=== PATIENT | female | born 1935 | race Caucasian/White ===

== ENCOUNTER 2017-01-11 18:22 | Emergency (ER) | payer OTHER ==
[~2017-01-11] VITALS: Ht 160 cm; Wt 63.8 kg
[~2017-01-11 18:22] MED LIST: CEPH500C3 PO; THYR15 PO; ZIAC106.25 PO
[2017-01-11 18:27] VITALS: BP 188/97; PULSE 77; RESP 16; TEMP 97.8; O2SAT 100
[2017-01-11] MEDS ORDERED: PROM25TA10 PO (18:43)
[2017-01-11] MEDS ORDERED: AMOX250C3 PO (18:43)
[2017-01-11] MEDS ORDERED: LEVO100T5 PO (18:43)
[2017-01-11] MEDS ORDERED: CLON0.1T PO (18:43)
[2017-01-11] MEDS ORDERED: ZIAC106.25 PO (18:43)
--- NOTE | 2017-01-11 18:46 | PD ---
HPI Chief Complaint: Injury Time Seen by Provider: 18:38 Travel History International Travel<30 days: No Contact w/Intl Traveler<30days: No Traveled to known affect area: No History of Present Illness HPI 81-year-old female complains of right wrist pain. Patient tripped and fell this afternoon. Patient denies loss of consciousness. Patient denies any headache or neck pain. Patient denies any chest pain or short of breath. Patient denies abdominal pain. Patient denies any back pain. Patient complained of sharp pain localized to the right wrist. Patient denies any pain radiation. On a scale of 1-10 the pain is an 8. Patient has history hypertension, hypothyroidism, chronic kidney disease. PFSH Past Medical History Diminished Hearing: No Hypertension: Yes Thyroid Disease: Yes Menopausal: Yes Past Surgical History Cholecystectomy: Yes Neurologic Surgery: Yes (BACK) Other Surgery: Yes (SINUS) Social History Alcohol Use: No Tobacco Use: No Substance Use: No Allergies-Medications (Allergen,Severity, Reaction): Coded Allergies: codeine (Unverified Adverse Reaction, Intermediate, ABD PAIN, 01/11/17) Reported Meds & Prescriptions Reported Meds & Active Scripts Active Reported Ziac (Bisoprolol Fumarate/HCTZ) 10-6.25 Mg Tab 1 Tab PO DAILY Amoxicillin 250 Mg Cap 250 Mg PO TID Phenergan (Promethazine HCl) 25 Mg Tablet 25 Mg PO Q6H PRN Clonidine (Clonidine HCl) 0.1 Mg Tab 0.1 Mg PO BID Levothyroxine (Levothyroxine Sodium) 100 Mcg Tab 100 Mcg PO DAILY Review of Systems General / Constitutional: No: Fever Eyes: No: Visual changes HENT: No: Headaches Cardiovascular: No: Chest Pain or Discomfort Respiratory: No: Shortness of Breath Gastrointestinal: No: Abdominal Pain Genitourinary: No: Dysuria Musculoskeletal: Positive: Pain Skin: No Rash Neurologic: No: Weakness Psychiatric: No: Depression Endocrine: No: Polydipsia Hematologic/Lymphatic: No: Easy Bruising Physical Exam Narrative GENERAL: Well-nourished, well-developed patient. SKIN: Focused skin assessment warm/dry. HEAD: Normocephalic. EYES: No scleral icterus. No injection or drainage. NECK: Supple, trachea midline. No JVD or lymphadenopathy. CARDIOVASCULAR: Regular rate and rhythm without murmurs, gallops, or rubs. RESPIRATORY: Breath sounds equal bilaterally. No accessory muscle use. GASTROINTESTINAL: Abdomen soft, non-tender, nondistended. MUSCULOSKELETAL: No cyanosis, or edema. BACK: Nontender without obvious deformity. No CVA tenderness. Patient has obvious deformity distal radius on the right wrist. Moderate tenderness on palpation of the right wrist. Limited range of motion of the fingers distally. Good capillary refill. Sensory function intact. Data Data Last Documented VS Vital Signs Date Time Temp Pulse Resp B/P (MAP) Pulse Ox O2 Delivery O2 Flow Rate FiO2 01/11/17 19:59 71 18 176/90 (118) 100 Room Air 01/11/17 18:27 97.8 Orders Orders Complete Blood Count With Diff (01/11/17 18:43) Basic Metabolic Panel (Bmp) (01/11/17 18:43) Prothrombin Time / Inr (Pt) (01/11/17 18:43) Act Partial Throm Time (Ptt) (01/11/17 18:43) Iv Access Insert/Monitor (01/11/17 18:43) Sodium Chlor 0.9% 1000 Ml Inj (Ns 1000 M (01/11/17 19:00) Morphine Inj (Morphine Inj) (01/11/17 19:00) Ondansetron Inj (Zofran Inj) (01/11/17 19:00) Lidocaine 1% Inj (50 Ml) (Xylocaine 1% I (01/11/17 19:00) Wrist, Limited (Ap&Lat) (01/11/17 18:43) Morphine Inj (Morphine Inj) (01/11/17 19:45) Wrist, Limited (Ap&Lat) (01/11/17 19:37) Splint Or Brace Apply/Monitor (01/11/17 19:46) Labs Laboratory Tests Test 01/11/17 19:10 White Blood Count 6.7 TH/MM3 Red Blood Count 4.01 MIL/MM3 Hemoglobin 11.8 GM/DL Hematocrit 35.9 % Mean Corpuscular Volume 89.5 FL Mean Corpuscular Hemoglobin 29.5 PG Mean Corpuscular Hemoglobin Concent 32.9 % Red Cell Distribution Width 12.7 % Platelet Count 149 TH/MM3 Mean Platelet Volume 11.3 FL Neutrophils (%) (Auto) 57.3 % Lymphocytes (%) (Auto) 28.3 % Monocytes (%) (Auto) 10.0 % Eosinophils (%) (Auto) 3.6 % Basophils (%) (Auto) 0.8 % Neutrophils # (Auto) 3.8 TH/MM3 Lymphocytes # (Auto) 1.9 TH/MM3 Monocytes # (Auto) 0.7 TH/MM3 Eosinophils # (Auto) 0.2 TH/MM3 Basophils # (Auto) 0.1 TH/MM3 CBC Comment DIFF FINAL Differential Comment Prothrombin Time 10.7 SEC Prothromb Time International Ratio 1.0 RATIO Activated Partial Thromboplast Time 26.1 SEC Blood Urea Nitrogen 40 MG/DL Creatinine 2.20 MG/DL Random Glucose 103 MG/DL Calcium Level 9.4 MG/DL Sodium Level 135 MEQ/L Potassium Level 3.6 MEQ/L Chloride Level 98 MEQ/L Carbon Dioxide Level 26.9 MEQ/L Anion Gap 10 MEQ/L Estimat Glomerular Filtration Rate 21 ML/MIN [facility] Medical Decision Making Medical Screen Exam Complete: Yes Emergency Medical Condition: Yes Interpretation(s) Last Impressions Wrist X-Ray 01/11/17 1843 Signed Impressions: Service Date/Time: Wednesday, January 11, 2017 18:59 - CONCLUSION: Comminuted and displaced fracture of the distal right radius. Please see above. Moisés Dennis MD Differential Diagnosis Differential diagnosis including fracture, dislocation. Narrative Course 81-year-old female with right wrist injury. Status post fall. Morphine 2 mg IV given. Zofran 4 mg IV. Repeat morphine 2 mg IV. Sugar tong splint and sling applied. I spoke with Dr. Sniclair's child and youth program assistant. Advised for patient to follow-up with him in the office. Procedures Procedure Narrative IV established. Patient was put on cardiac and pulse oximetry monitor. Morphine 2 mg IV given 2. Zofran 4 mg IV. 10 cc of 1% lidocaine injected to distal right radius pressure to distal radius and flexion of the right wrist applied. Patient was put in a sugar tong splint and sling. Diagnosis Primary Impression: Fracture of right radius and ulna Qualified Codes: S52.91XA - Unspecified fracture of right forearm, initial encounter for closed fracture; S52.201A - Unspecified fracture of shaft of right ulna, initial encounter for closed fracture Patient Instructions: General Instructions Additional Instructions: Take medication as needed for pain. Follow-up with orthopedist, Dr. Sinclair, in the office Med/Other Pt SpecificInfo: Prescription(s) given Scripts Ondansetron Odt (Zofran Odt) 4 Mg Tab 4 MG SL Q6HR Y for Nausea/Vomiting, #12 TAB 0 Refills Prov: Jose Dunlap MD 01/11/17 Hydrocodone-Acetaminophen ([place]) 5-325 mg Tab 1 TAB PO Q6H Y for PAIN, #30 TAB 0 Refills Prov: Jose Dunlap MD 01/11/17 Disposition: 01 DISCHARGE HOME Condition: Stable Jose Dunlap MD Jan 11, 2017 18:46
[2017-01-11] MEDS ORDERED: SODIUM CHLOR 0.9% 1000 ML INJ 1,000 ML IV SCH (19:00)
[2017-01-11] MEDS ORDERED: ONDANSETRON HCL 4 MG/2 ML VIAL IV PUSH ONE (19:00)
[2017-01-11] MEDS ORDERED: MORPHINE SULFATE 4 MG/ML INJ IV PUSH ONE ×2 (19:00→19:45)
[2017-01-11] MEDS ORDERED: LIDOCAINE HCL 1% 50 ML VIAL INFIL ONE (19:00)
[2017-01-11 19:19] LABS: AUTOMATED NEUTROPHIL # 3.8 TH/MM3 (1.8-7.7); BASOPHIL # 0.1 TH/MM3 (0-0.2); BASOPHIL % 0.8 % (0.0-2.0); EOSINOPHIL # 0.2 TH/MM3 (0-0.4); EOSINOPHIL % 3.6 % (0.0-4.0); HEMATOCRIT 35.9 % (35.0-46.0); HEMO FLAGS DIFF FINAL; LYMPH % 28.3 % (9.0-44.0); LYMPHOCYTE # 1.9 TH/MM3 (1.0-4.8); MEAN CELL VOLUME 89.5 FL (80.0-100.0); MEAN CORPUSCULAR HEMOGLOBIN 29.5 PG (27.0-34.0); MEAN CORPUSCULAR HGB CONC 32.9 % (32.0-36.0); NEUT % 57.3 % (16.0-70.0); PLATELET COUNT 149 TH/MM3 (150-450); RED BLOOD COUNT 4.01 MIL/MM3 (4.00-5.30); RED CELL DISTRIBUTION WIDTH 12.7 % (11.6-17.2); WHITE BLOOD COUNT 6.7 TH/MM3 (4.0-11.0)
--- NOTE | 2017-01-11 19:23 | RADRPT ---
EXAM DATE/TIME: 01/11/2017 18:59 [facility] COMPARISON: No previous studies available for comparison. INDICATIONS : Right wrist pain, swelling, and deformity after falling tonight. MEDICAL HISTORY : None. SURGICAL HISTORY : None. ENCOUNTER: Initial ACUITY: 1 day PAIN SCORE: 8/10 LOCATION: Right wrist. FINDINGS: There is a comminuted fracture in the physeal scar region of the distal right radius. There is about one shaft width of dorsal displacement, about 1 cm of impaction/foreshortening and moderate dorsal an gulation deformity. Articular surfaces of the radiocarpal joint appear intact. Carpal bones appear in tact. CONCLUSION: Comminuted and displaced fracture of the distal right radius. Please see above. Moisés Dennis MD on January 11, 2017 at 19:20 Board Certified Radiologist. This report was verified electronically.
[2017-01-11 19:31] LABS: POTASSIUM 3.6 MEQ/L (3.5-5.1)
[2017-01-11 19:34] LABS: BICARBONATE 26.9 MEQ/L (21.0-32.0)
[2017-01-11 19:35] VITALS: BP 173/92; PULSE 70; RESP 18; O2SAT 100
[2017-01-11 19:37] LABS: APTT (PATIENT) 26.1 SEC (24.3-30.1); PROTHROMBIN TIME - PATIENT 10.7 SEC (9.8-11.6)
--- NOTE | 2017-01-11 19:52 | RADRPT ---
EXAM DATE/TIME: 01/11/2017 19:44 [facility] COMPARISON: WRIST RIGHT LIMITED(AP & LAT), January 11, 2017, 18:59. INDICATIONS : Post reduction of the right wrist fracture. MEDICAL HISTORY : None. SURGICAL HISTORY : None. ENCOUNTER: Subsequent ACUITY: 1 day PAIN SCORE: 9/10 LOCATION: Right wrist. FINDINGS: There is improved alignment after closed reduction of the distal right radial fracture. Some malalign ment persists, mostly the impaction/foreshortening of currently approximately 6 mm. There is a mildly displaced ulnar styloid fracture now apparent. CONCLUSION: Improved alignment of the distal radial fracture after closed reduction. Acute ulnar styloid fracture present. Moisés Dennis MD on January 11, 2017 at 19:49 Board Certified Radiologist. This report was verified electronically.
[2017-01-11 19:59] VITALS: BP 176/90; PULSE 71; RESP 18; O2SAT 100
[2017-01-11] MEDS ORDERED: ZOFR4TAB3 SL (20:33)
[2017-01-11] MEDS ORDERED: NORC5TAB PO (20:33)
[2017-01-11 21:03] VITALS: BP 167/92; PULSE 71; RESP 18; O2SAT 100
== END 2017-01-11 21:05 | disposition home or self-care (01) ==
LOC: PHED 18:22
DX: S52.91XA Unspecified fracture of right forearm, initial encounter for closed fracture (principal); S52.201A Unspecified fracture of shaft of right ulna, initial encounter for closed fracture; I12.9 Hypertensive chronic kidney disease with stage 1 through stage 4 chronic kidney disease, or unspecified chronic kidney disease; N18.9 Chronic kidney disease, unspecified; E03.9 Hypothyroidism, unspecified; Z79.899 Other long term (current) drug therapy; W01.0XXA Fall on same level from slipping, tripping and stumbling without subsequent striking against object, initial encounter
CPT/HCPCS: 25605; 73100; 80048; 85025; 85610; 85730; 96361; 96374; 96375; 99284; J2270; J2405; J7030

== ENCOUNTER 2017-01-13 16:32 | Inpatient (IN) | payer OTHER, MEDICARE ==
[~2017-01-13] VITALS: Ht 165.1 cm; Wt 63.5 kg
[~2017-01-13 16:32] MED LIST changes: +AMOX250C3 PO; -CEPH500C3 PO; +CLON0.1T PO; +LEVO100T5 PO; +NORC5TAB PO; +PROM25TA10 PO; -THYR15 PO; +ZOFR4TAB3 SL
[2017-01-13 16:34] VITALS: BP 210/103; PULSE 76; RESP 18; TEMP 99.1; O2SAT 96
--- NOTE | 2017-01-13 19:35 | RADRPT ---
EXAM DATE/TIME: 01/13/2017 19:14 [facility] COMPARISON: WRIST RIGHT LIMITED(AP & LAT), January 11, 2017, 19:44. INDICATIONS : Right distal forearm pain, fell MEDICAL HISTORY : None. SURGICAL HISTORY : None. ENCOUNTER: Sequela ACUITY: 3 days PAIN SCORE: 10/10 LOCATION: Right Forearm FINDINGS: A very comminuted and mildly impacted and dorsally displaced fracture is again seen of the distal rig ht radius. There is also an old or styloid fracture. The remainder of the right radius and ulna are i ntact. CONCLUSION: Comminuted and mildly impacted/dorsally displaced of the distal radius without significant change. Al so a mildly displaced ulnar styloid fracture. The rest of the right radius and ulna are intact. Moisés Dennis MD on January 13, 2017 at 19:32 Board Certified Radiologist. This report was verified electronically.
--- NOTE | 2017-01-13 19:36 | RADRPT ---
EXAM DATE/TIME: 01/13/2017 19:15 [facility] COMPARISON: WRIST RIGHT LIMITED(AP & LAT), January 11, 2017, 19:44. INDICATIONS : Right proximal hand pain, fell MEDICAL HISTORY : None. SURGICAL HISTORY : None. ENCOUNTER: Sequela ACUITY: 3 days PAIN SCORE: 10/10 LOCATION: Right Hand FINDINGS: Three view examination of the right hand demonstrates no soft tissue swelling, dislocation, or fractu re. The carpal bones appear intact. The interphalangeal and metacarpophalangeal joints are intact. Bony mineralization is normal. 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 Moderate joint space narrowing with chronic ap pearing erosions seen of the first metacarpophalangeal joint. CONCLUSION: No fracture or other acute abnormality seen of the right hand. Moisés Dennis MD on January 13, 2017 at 19:34 Board Certified Radiologist. This report was verified electronically.
[2017-01-13 19:46] VITALS: BP 207/93; PULSE 83; RESP 18; O2SAT 98
[2017-01-13] MEDS ORDERED: MORPHINE SULFATE 4 MG/ML INJ IV PUSH ONE (20:00)
[2017-01-13] MEDS ORDERED: ONDANSETRON HCL 4 MG/2 ML VIAL IV PUSH ONE (20:00)
--- NOTE | 2017-01-13 20:04 | PD ---
Physical Exam Date Seen by Provider: Jan 13, 2017 Time Seen by Provider: 19:58 Narrative GENERAL: SKIN: Warm and dry. HEAD: Normocephalic. EYES: No scleral icterus. No injection or drainage. NECK: Supple, trachea midline. No JVD or lymphadenopathy. CARDIOVASCULAR: Regular rate and rhythm without murmurs, gallops, or rubs. RESPIRATORY: Breath sounds equal bilaterally. No accessory muscle use. GASTROINTESTINAL: Abdomen soft, non-tender, nondistended. MUSCULOSKELETAL: No cyanosis, attention right upper extremity with wrist and hand edema post splinting for wrist fracture with hand edema; capillary refill less than 2 seconds, radial pulse 2+ to palpation, decreased thumb apposition secondary to previous hand surgery, patient denies any sensory deficit to light touch sensation. Data Data Last Documented VS Vital Signs Date Time Temp Pulse Resp B/P (MAP) Pulse Ox O2 Delivery O2 Flow Rate FiO2 01/13/17 20:14 67 18 197/89 (125) 99 Room Air 01/13/17 16:34 99.1 Orders Orders Forearm (2vws) (01/13/17 19:03) Ice/Cold Pack (01/13/17 19:03) Hand, Complete ([id number]) (01/13/17 19:03) ^ Saline Lock (01/13/17 19:56) Morphine Inj (Morphine Inj) (01/13/17 20:00) Ondansetron Inj (Zofran Inj) (01/13/17 20:00) MDM Medical Record Reviewed: Yes Supervised Visit with DANIELE: Yes Interpretation(s) Last Impressions Radius/Ulna X-Ray 01/13/171902 Signed Impressions: Service Date/Time: December 19:14 - CONCLUSION: Comminuted and mildly impacted/dorsally displaced of the distal radius without significant change. Also a mildly displaced ulnar styloid fracture. The rest of the right radius and ulna are intact. Moisés Dennis MD Hand X-Ray 01/13/171902 Signed Impressions: Service Date/Time: December 19:15 - CONCLUSION: No fracture or other acute abnormality seen of the right hand. Moisés Dennis MD Differential Diagnosis Comminuted fracture, compartment syndrome, neurovascular tendon injury Narrative Course I, Dr. Trevino, have reviewed the advance practice practitioner's documentation and am in agreement, met with the patient face to face, made the diagnosis, and the medical decision making was done by me. *My assessment and Findings: A 81-year-old female had a non-syncopal trip and fall on Tuesday with a right wrist injury associated with deformity angulation. Patient sustained no other injury at the time. Patient was seen in the emergency department at [facility] where closed reduction was performed a sugar tong splint was applied and patient was referred to Dr. Scales 's office after speaking with parent and his PA for the patient to be seen by the end of this week. According to the patient and her daughter with whom she lives attempt was made to schedule appointment with Dr. Scales's office but was unsuccessful. A family friend is an orthopedist who had an opportunity to review her x-rays and stated that the patient needed to be re-seen in the hospital and needed to have surgical repair of the wrist fracture. Patient returns to the emergency department this time due to increasing and ongoing pain as well as swelling of the hand. Patient also has history of hypertension , hypothyroidism previous cholecystectomy and back surgery; patient sustained no other injury and denies any other areas of pain except for the right wrist and swelling of right hand. Patient's had some mild tingling to the right index finger. Patient has been taking her blood pressure medication and other medications as prescribed, does not take any blood thinning agents. Patient states that because of pain she has had poor appetite. Patient has had no subsequent fall. Saline lock inserted patient administered morphine sulfate 3 mg IV along with Zofran 4 mg IV for complaint of 10 over 10 wrist pain Call placed to process control technician orthopedist, Dr. Castillo Physician Communication Physician Communication call placed to on-call orthopedist Dr Castillo; repeat call; repeat call Zo Trevino MD Jan 13, 2017 20:04
--- NOTE | 2017-01-13 20:04 | PD ---
HPI . Right wrist fracture Chief Complaint: Fall Time Seen by Provider: 19:00 Travel History International Travel<30 days: No Contact w/Intl Traveler<30days: No Traveled to known affect area: No History of Present Illness HPI 81-year-old female patient presents emergency department for evaluation of right wrist fracture. Patient was seen at our facility [place] and the fracture was splinted with a sugar tong splint and patient was referred to follow up with orthopedist outpatient. Patient states she has been unable to get up appointment within an appropriate period of time with the orthopedist. Patient states that her right hand is becoming more painful, swollen and numb everyday. Patient states she is unable to eat or sleep due to the pain. Patient denies any other physiological complaint at this time. Patient denies chest pain, shortness breath or lightheadedness. PFSH Past Medical History Cardiovascular Problems: Yes Diminished Hearing: No Genitourinary: Yes (ESRD stage 4) Hypertension: Yes Thyroid Disease: Yes Tetanus Vaccination: < 5 Years Influenza Vaccination: No Menopausal: Yes Past Surgical History Appendectomy: Yes Cholecystectomy: Yes Genitourinary Surgery: Yes (bladder ) Neurologic Surgery: Yes (BACK) Other Surgery: Yes (SINUS) Social History Alcohol Use: No Tobacco Use: No Substance Use: No Allergies-Medications (Allergen,Severity, Reaction): Coded Allergies: codeine (Unverified Adverse Reaction, Intermediate, ABD PAIN, 01/13/17) Reported Meds & Prescriptions Reported Meds & Active Scripts Active Zofran Odt (Ondansetron Odt) 4 Mg Tab 4 Mg SL Q6HR PRN Crivitz (Hydrocodone-Acetaminophen) 5-325 mg Tab 1 Tab PO Q6H PRN Reported Ziac (Bisoprolol Fumarate/HCTZ) 10-6.25 Mg Tab 1 Tab PO DAILY Amoxicillin 250 Mg Cap 250 Mg PO TID Phenergan (Promethazine HCl) 25 Mg Tablet 25 Mg PO Q6H PRN Clonidine (Clonidine HCl) 0.1 Mg Tab 0.1 Mg PO BID Levothyroxine (Levothyroxine Sodium) 100 Mcg Tab 100 Mcg PO DAILY Review of Systems Except as stated in HPI: all other systems reviewed are Neg Physical Exam Narrative GENERAL: Well-nourished well-developed 81-year-old female in no acute distress. SKIN: Focused skin assessment warm/dry. HEAD: Atraumatic. Normocephalic. EYES: Pupils equal and round. No scleral icterus. No injection or drainage. ENT: No nasal bleeding or discharge. Mucous membranes pink and moist. NECK: Trachea midline. No JVD. CARDIOVASCULAR: Regular rate and rhythm. No murmur appreciated. Bilateral radial pulses palpated. Capillary refill within normal limits. RESPIRATORY: No accessory muscle use. Clear to auscultation. Breath sounds equal bilaterally. GASTROINTESTINAL: Abdomen soft, non-tender, nondistended. Hepatic and splenic margins not palpable. MUSCULOSKELETAL: Right wrist angulated and deformed. Right wrist ecchymotic, swollen and painful. NEUROLOGICAL: Awake and alert. No obvious cranial nerve deficits. Motor grossly within normal limits. Normal speech. PSYCHIATRIC: Appropriate mood and affect; insight and judgment normal. Data Data Last Documented VS Vital Signs Date Time Temp Pulse Resp B/P (MAP) Pulse Ox O2 Delivery O2 Flow Rate FiO2 01/13/17 20:14 67 18 197/89 (125) 99 Room Air 01/13/17 16:34 99.1 Orders Orders Forearm (2vws) (01/13/17 19:03) Ice/Cold Pack (01/13/17 19:03) Hand, Complete ([id number]) (01/13/17 19:03) ^ Saline Lock (01/13/17 19:56) Morphine Inj (Morphine Inj) (01/13/17 20:00) Ondansetron Inj (Zofran Inj) (01/13/17 20:00) Complete Blood Count With Diff (01/13/17 21:21) Basic Metabolic Panel (Bmp) (01/13/17 21:21) Electrocardiogram (01/13/17 ) Type And Screen (01/13/17 21:21) Act Partial Throm Time (Ptt) (01/13/17 21:21) Prothrombin Time / Inr (Pt) (01/13/17 21:21) Chest, Single Ap (01/13/17 ) Admit To Inpatient (01/13/17 ) Vital Signs (Adult) Q4H (01/13/17 21:52) Activity Oob With Assistance (01/13/17 21:52) Citizenship Teacher / Telemetry .CONTINUOUS (01/13/17 21:52) Diet Npo (01/14/17 Breakfast) Sodium Chloride 0.9% Flush (Ns Flush) (01/13/17 22:00) Sodium Chloride 0.9% Flush (Ns Flush) (01/14/17 09:00) Basic Metabolic Panel (Bmp) (01/14/17 06:00) Complete Blood Count With Diff (01/14/17 06:00) Case Management Consult (01/13/17 21:52) Naloxone Inj (Narcan Inj) (01/13/17 22:00) Inpatient Certification (01/13/17 ) Morphine Inj (Morphine Inj) (01/13/17 22:00) Labs Laboratory Tests Test 01/13/17 21:26 White Blood Count 7.4 TH/MM3 Red Blood Count 4.10 MIL/MM3 Hemoglobin 12.3 GM/DL Hematocrit 37.5 % Mean Corpuscular Volume 91.5 FL Mean Corpuscular Hemoglobin 29.9 PG Mean Corpuscular Hemoglobin Concent 32.7 % Red Cell Distribution Width 13.8 % Platelet Count 148 TH/MM3 Mean Platelet Volume 12.0 FL Neutrophils (%) (Auto) 66.6 % Lymphocytes (%) (Auto) 20.6 % Monocytes (%) (Auto) 10.3 % Eosinophils (%) (Auto) 2.1 % Basophils (%) (Auto) 0.4 % Neutrophils # (Auto) 5.0 TH/MM3 Lymphocytes # (Auto) 1.5 TH/MM3 Monocytes # (Auto) 0.8 TH/MM3 Eosinophils # (Auto) 0.2 TH/MM3 Basophils # (Auto) 0.0 TH/MM3 CBC Comment DIFF FINAL Differential Comment MDM Medical Decision Making Medical Screen Exam Complete: Yes Emergency Medical Condition: Yes Medical Record Reviewed: Yes Interpretation(s) Hypertensive Differential Diagnosis Differential diagnoses include but are not limited to compartment syndrome, wrist fracture, arm fracture, arm contusion Narrative Course 81-year-old female presents emergency department for evaluation of right wrist fracture after falling on Tuesday. Patient was seen at our facility in [place] and evaluated. Patient was splinted with a sugar tong splint and referred to follow up with orthopedist outpatient. Patient was unable to obtain an appointment with the orthopedist within an appropriate period time. Patient was instructed that the first appointment available would be mid- January. Patient's arm was becoming more swollen, painful and numb daily. Patient was instructed by a family friend who is an orthopedist that her type of fracture needs a surgical intervention within the first 10 days in order to achieve optimal recovery. Due to the swelling, ecchymosis and painfulness associated the splint was removed upon the patient's arrival to evaluate the injury. Patient reported decreased pain with the removal of the splint. Repeat x-ray was performed to ensure proper alignment still in place. Call is placed to the orthopedist marketing and communications officer. Based on patient's symptoms, clinical appearance, vital signs review, physical assessment it is clinically appropriate to admit the patient to the hospital for treatment and further evaluation. Patient will be [facility] to [facility] with a consult to Dr. Webb, the orthopedic surgeon. Dr. Portillo accepted admission of this patient. Diagnosis Primary Impression: Wrist fracture, right Qualified Codes: S62.101A - Fracture of unspecified carpal bone, right wrist, initial encounter for closed fracture Additional Impression: Pain and swelling of right wrist Admitting Information Admitting Physician Requests: Admit Mala Callaway Jan 13, 2017 20:04
[2017-01-13 20:14] VITALS: BP 197/89; PULSE 67; RESP 18; O2SAT 99
[2017-01-13 21:52] LABS: BASOPHIL % 0.4 % (0.0-2.0); EOSINOPHIL # 0.2 TH/MM3 (0-0.4); EOSINOPHIL % 2.1 % (0.0-4.0); HEMATOCRIT 37.5 % (35.0-46.0); HEMO FLAGS DIFF FINAL; LYMPH % 20.6 % (9.0-44.0); LYMPHOCYTE # 1.5 TH/MM3 (1.0-4.8); MEAN CELL VOLUME 91.5 FL (80.0-100.0); MEAN CORPUSCULAR HEMOGLOBIN 29.9 PG (27.0-34.0); MEAN CORPUSCULAR HGB CONC 32.7 % (32.0-36.0); MONO % 10.3 % (0.0-8.0); NEUT % 66.6 % (16.0-70.0); PLATELET COUNT 148 TH/MM3 (150-450); RED CELL DISTRIBUTION WIDTH 13.8 % (11.6-17.2); WHITE BLOOD COUNT 7.4 TH/MM3 (4.0-11.0)
--- NOTE | 2017-01-13 21:57 | RADRPT ---
EXAM DATE/TIME: 01/13/2017 21:25 [facility] COMPARISON: No previous studies available for comparison. INDICATIONS : Evaluate for pneumonia, pneumothorax, or communicable disease. Pre-op for surgery. MEDICAL HISTORY : Hypertension. SURGICAL HISTORY : Hysterectomy. ENCOUNTER: Subsequent ACUITY: 1 day PAIN SCORE: 0/10 LOCATION: Bilateral chest FINDINGS: A curvilinear reflection projects over the right mid-upper lung paraplegia is probably a skinfold rat her than a pneumothorax. No infiltrate. No effusion. There is mild cardiomegaly. CONCLUSION: No acute cardiopulmonary disease demonstrated. Mild compensated cardiomegaly. Moisés Dennis MD on January 13, 2017 at 21:55 Board Certified Radiologist. This report was verified electronically.
[2017-01-13 22:00] LABS: APTT (PATIENT) 27.1 SEC (24.3-30.1); PROTHROMBIN TIME - PATIENT 10.5 SEC (9.8-11.6)
[2017-01-13] MEDS ORDERED: SODIUM CHLORIDE 0.9% FLUSH 10 ML FLUSH IV FLUSH PRN (22:00)
[2017-01-13] MEDS ORDERED: NALOXONE HCL 0.4 MG/ML AMP IV PUSH PRN (22:00)
[2017-01-13] MEDS ORDERED: MORPHINE SULFATE 4 MG/ML INJ IV PUSH PRN (22:00)
[2017-01-13 22:01] VITALS: BP 210/100; PULSE 73; RESP 18; O2SAT 99
[2017-01-13 22:05] LABS: BICARBONATE 29.5 MEQ/L (21.0-32.0); POTASSIUM 3.3 MEQ/L (3.5-5.1)
[2017-01-13 22:15] VITALS: BP 163/94; PULSE 74; RESP 18; O2SAT 99
[2017-01-13] MEDS: cloNIDine HCL 0.1 MG TAB PO PRN (22:17)
[2017-01-13 22:53] VITALS: BP 189/95; PULSE 76; RESP 17; TEMP 97.6; O2SAT 99
[2017-01-14] VITALS (8 sets, daily range): BP systolic 102–152; BP diastolic 54–80; PULSE 73–96; RESP 17–18; TEMP 97–98.2; O2SAT 95–98
--- NOTE | 2017-01-14 04:45 | HHI.HP ---
HPI Service [facility] Hospitalists Primary Care Physician Unknown Admission Diagnosis right wrist fracture Diagnoses: Travel History International Travel<30 Days: No Contact w/Intl Traveler <30 Da: No Traveled to Known Affected Are: No History of Present Illness Written by BETHANY Streeter acting as scribe for [Lindsey] on 01/14/17 at 04: 37. 81 y/o female with a history of CKD stage IV, HTN, 2 leaky valves, CHF, COPD and hypothyroid presented to the ED with complaints of increasing pain and swelling in right wrist. She states on Tuesday she walked outside to throw out a lamp in the garbage and she stepped backwards and she fell and landed on her right arm. Denies any LOC or hitting her head. She went to [facility] and she was splinted and given the number for an orthopedic and told to follow up out patient. She called the orthopedic and was unable to get an appointment until . She states the pain and swelling began to increase so she came back to the hospital. The splint was removed in the ED and she had instant pain relief. Splint was reapplied in ED. She denies any chest pain, sob, fever or chills. Patient states 1 week ago she was treated for a kidney infection and was treated with Augmentin by her PCP. PCP: Dr. Posey Review of Systems Except as stated in HPI: all other systems reviewed are Neg Past Family Social History Past Medical History CKD, stage 4 HTN 2 leaky valves CHF Past Surgical History Cholecystectomy Bladder lift Reported Medications Reported Meds & Active Scripts Active Zofran Odt (Ondansetron Odt) 4 Mg Tab 4 Mg SL Q6HR PRN [place] (Hydrocodone-Acetaminophen) 5-325 mg Tab 1 Tab PO Q6H PRN Reported Ziac (Bisoprolol Fumarate/HCTZ) 10-6.25 Mg Tab 1 Tab PO DAILY Amoxicillin 250 Mg Cap 250 Mg PO TID Phenergan (Promethazine HCl) 25 Mg Tablet 25 Mg PO Q6H PRN Clonidine (Clonidine HCl) 0.1 Mg Tab 0.1 Mg PO BID Levothyroxine (Levothyroxine Sodium) 100 Mcg Tab 100 Mcg PO DAILY Allergies: Coded Allergies: codeine (Unverified Adverse Reaction, Intermediate, ABD PAIN, 01/13/17) Active Ordered Medications Current Medications Medications (Trade) Dose Ordered Sig/Jenna Route Start Time Stop Time Status Last Admin (NS Flush) 2 ml UNSCH PRN IV FLUSH 01/13/17 22:00 (NS Flush) 2 ml BID IV FLUSH 01/14/17 09:00 (Narcan Inj) 0.4 mg UNSCH PRN IV PUSH 01/13/17 22:00 (Morphine Inj) 2 mg Q3H PRN IV PUSH 01/13/17 22:00 (Catapres) 0.1 mg Q6H PRN PO 01/13/17 22:00 01/13/17 22:17 (Catapres) 0.1 mg BID PO 01/14/17 09:00 Family History Dad: Heart disease, [place] Social History Patient denies any tobacco, alcohol, or illicit drug use. Physical Exam Vital Signs Vital Signs Date Time Temp Pulse Resp B/P (MAP) Pulse Ox O2 Delivery O2 Flow Rate FiO2 01/13/17 22:53 97.6 76 17 189/95 (126) 99 01/13/17 22:35 01/13/17 22:15 74 18 163/94 (117) 99 Room Air 01/13/17 22:01 73 18 210/100 (136) 99 Room Air 01/13/17 20:14 67 18 197/89 (125) 99 Room Air 01/13/17 19:46 83 18 207/93 (131) 98 Room Air 01/13/17 18:41 99 Room Air 01/13/17 16:34 99.1 76 18 210/103 (138) 96 Room Air Physical Exam GENERAL: This is a well-nourished, well-developed patient, in no apparent distress. SKIN: No rashes, ecchymoses or lesions. Cool and dry. HEAD: Atraumatic. Normocephalic. EYES: Pupils equal round and reactive. ENT: Nose without bleeding, purulent drainage or septal hematoma. Airway patent. NECK: Trachea midline. No JVD. CARDIOVASCULAR: Regular rate and rhythm without murmurs, gallops, or rubs. RESPIRATORY: Clear to auscultation. Breath sounds equal bilaterally. No wheezes , rales, or rhonchi. GASTROINTESTINAL: Abdomen soft, non-tender, nondistended. No hepato-splenomegaly , or palpable masses. No guarding. MUSCULOSKELETAL: Right wrist pain, currently in a splint, able to wiggle fingers. No calf tenderness. NEUROLOGICAL: Awake and alert. Motor and sensory grossly within normal limits. Normal speech. Laboratory Laboratory Tests Test 01/13/17 21:26 White Blood Count 7.4 Red Blood Count 4.10 Hemoglobin 12.3 Hematocrit 37.5 Mean Corpuscular Volume 91.5 Mean Corpuscular Hemoglobin 29.9 Mean Corpuscular Hemoglobin Concent 32.7 Red Cell Distribution Width 13.8 Platelet Count 148 Mean Platelet Volume 12.0 Neutrophils (%) (Auto) 66.6 Lymphocytes (%) (Auto) 20.6 Monocytes (%) (Auto) 10.3 Eosinophils (%) (Auto) 2.1 Basophils (%) (Auto) 0.4 Neutrophils # (Auto) 5.0 Lymphocytes # (Auto) 1.5 Monocytes # (Auto) 0.8 Eosinophils # (Auto) 0.2 Basophils # (Auto) 0.0 CBC Comment DIFF FINAL Differential Comment Prothrombin Time 10.5 Prothromb Time International Ratio 1.0 Activated Partial Thromboplast Time 27.1 Blood Urea Nitrogen 32 Creatinine 1.69 Random Glucose 81 Calcium Level 9.8 Sodium Level 138 Potassium Level 3.3 Chloride Level 100 Carbon Dioxide Level 29.5 Anion Gap 9 Estimat Glomerular Filtration Rate 29 Result Diagram: 01/13/17212501/13/172125 Imaging Last Impressions Radius/Ulna X-Ray 01/13/171902 Signed Impressions: Service Date/Time: December 19:14 - CONCLUSION: Comminuted and mildly impacted/dorsally displaced of the distal radius without significant change. Also a mildly displaced ulnar styloid fracture. The rest of the right radius and ulna are intact. Moisés Dennis MD Hand X-Ray 01/13/171902 Signed Impressions: Service Date/Time: December 19:15 - CONCLUSION: No fracture or other acute abnormality seen of the right hand. Moisés Dennis MD Chest X-Ray 01/13/17 0000 Signed Impressions: Service Date/Time: December 21:25 - CONCLUSION: No acute cardiopulmonary disease demonstrated. Mild compensated cardiomegaly. MD Vanessa Olivares VTE Risk Assessment [place] VTE Risk Assessment: Mod/High Risk (score >= 2) VTE Pharm Contraindication: surgery Caprini Risk Assessment Model Point Value = 1 Point Value = 2 Point Value = 3 Point Value = 5 Age 41-60 Minor surgery BMI > 25 kg/m2 Swollen legs Varicose veins or History of unexplained or recurrent spontaneous Oral contraceptives or hormone replacement Sepsis (< 1 month) Serious lung disease, including pneumonia (< 1 month) Abnormal pulmonary function Acute myocardial infarction Congestive heart failure (< 1 month) History of inflammatory bowel disease Medical patient at bed rest Age 61-74 Arthroscopic surgery Major open surgery (> 45 min) Laparoscopic surgery (> 45 min) Malignancy Confined to bed (> 72 hours) Immobilizing plaster cast Central venous access Age >= 75 History of VTE Family history of VTE Factor V Leiden Prothrombin [id number] Lupus anticoagulant Anticardiolipin antibodies Elevated serum homocysteine Heparin-induced thrombocytopenia Other congenital or acquired thrombophilia Stroke (< 1 month) Elective arthroplasty Hip, pelvis, or leg fracture Acute spinal cord injury (< 1 month) Prophylaxis Regimen Total Risk Factor Score Risk Level Prophylaxis Regimen 0-1 Low Early ambulation 2 Moderate Order ONE of the following: *Sequential Compression Device (SCD) *Heparin 5000 units SQ BID 3-4 Higher Order ONE of the following medications: *Heparin 5000 units SQ TID *Enoxaparin/Lovenox 40 mg SQ daily (WT < 150 kg, CrCl > 30 mL/min) *Enoxaparin/Lovenox 30 mg SQ daily (WT < 150 kg, CrCl > 10-29 mL/min) *Enoxaparin/Lovenox 30 mg SQ BID (WT < 150 kg, CrCl > 30 mL/min) AND/OR *Sequential Compression Device (SCD) 5 or more Highest Order ONE of the following medications: *Heparin 5000 units SQ TID (Preferred with Epidurals) *Enoxaparin/Lovenox 40 mg SQ daily (WT < 150 kg, CrCl > 30 mL/min) *Enoxaparin/Lovenox 30 mg SQ daily (WT < 150 kg, CrCl > 10-29 mL/min) *Enoxaparin/Lovenox 30 mg SQ BID (WT < 150 kg, CrCl > 30 mL/min) AND *Sequential Compression Device (SCD) Assessment and Plan Problem List: (1) Wrist fracture, right ICD Code: S62.101A - Fracture of unspecified carpal bone, right wrist, initial encounter for closed fracture Status: Acute (2) HTN (hypertension) ICD Code: I10 - Essential (primary) hypertension Status: Chronic Assessment and Plan 81 y/o female with a history of CKD stage IV, HTN, 2 leaky valves, CHF, COPD and hypothyroid presented to the ED with complaints of increasing pain and swelling in right wrist. Wrist fracture, right Wrist x ray reviewed and shows a comminuted and mildly impacted/dorsally displaced of the distal radius. also mildly displace ulnar styloid fracture. -Consult orthopedic, surgery in am planned -NPO -Pain management with Morphine IV HTN, chronic, elevated suspect due to pain: Resume home clonidine, monitor vitals Hypothyroid, chronic: Resume home medications CKD, chronic, creatine 1.69, baseline 2.2 -Avoid nephrotoxins -Trend creatine, will consult nephrology if creatine worsens DVT prophylaxis: SCDs This note was transcribed by joceibquinn [Uzma Diaz]. I, Dr. Mason Portillo personally performed the history, physical exam, and medical decision making; and confirmed the accuracy of the information in the transcribed note. Authenticated by Dr. Mason Portillo on01/14/17 at 04:37. Discussed Condition With Patient Physician Certification 2 Midnight Certification Type: Admission for Inpatient Services Order for Inpatient Services The services are ordered in accordance with Medicare regulations or non- Medicare payer requirements, as applicable. In the case of services not specified as inpatient-only, they are appropriately provided as inpatient services in accordance with the 2-midnight benchmark. Estimated LOS (days): 3 days is the estimated time the patient will need to remain in the hospital, assuming treatment plan goals are met and no additional complications. Post-Hospital Plan: Home Problem Qualifiers (1) Wrist fracture, right: Qualified Codes: S62.101A - Fracture of unspecified carpal bone, right wrist, initial encounter for closed fracture Uzma Diaz Jan 14, 2017 04:45 Mason Portillo MD Jan 14, 2017 10:44
[2017-01-14] MEDS: LEVOTHYROXINE SODIUM 100 MCG TAB PO SCH (06:14)
[2017-01-14] MEDS ORDERED: HYDR-3580 PO (07:07)
--- NOTE | 2017-01-14 07:10 | PD.ORT.PN ---
Subjective Subjective Remarks s/p fall at home right wrist pain Objective Vitals Vital Signs Date Time Temp Pulse Resp B/P (MAP) Pulse Ox O2 Delivery O2 Flow Rate FiO2 01/14/17 04:00 97.9 76 17 147/78 (101) 97 01/14/17 03:10 Room Air 01/13/17 22:53 97.6 76 17 189/95 (126) 99 01/13/17 22:35 01/13/17 22:15 74 18 163/94 (117) 99 Room Air 01/13/17 22:01 73 18 210/100 (136) 99 Room Air 01/13/17 20:14 67 18 197/89 (125) 99 Room Air 01/13/17 19:46 83 18 207/93 (131) 98 Room Air 01/13/17 18:41 99 Room Air 01/13/17 16:34 99.1 76 18 210/103 (138) 96 Room Air I/O 01/13/17 01/13/17 01/13/17 01/14/17 01/14/17 01/14/17 07:00 15:00 23:00 07:00 15:00 23:00 Intake Total 0 ml Balance 0 ml Intake Oral 0 ml # Voids 2 Result Diagram: 01/13/17212501/13/172125 Other Results Laboratory Tests Test 01/13/17 21:26 Prothromb Time International Ratio 1.0 RATIO Prothrombin Time 10.5 SEC (9.8-11.6) Imaging Last 24 hours Impressions Radius/Ulna X-Ray 01/13/171902 Signed Impressions: Service Date/Time: December 19:14 - CONCLUSION: Comminuted and mildly impacted/dorsally displaced of the distal radius without significant change. Also a mildly displaced ulnar styloid fracture. The rest of the right radius and ulna are intact. Moisés Dennis MD Hand X-Ray 01/13/171902 Signed Impressions: Service Date/Time: December 19:15 - CONCLUSION: No fracture or other acute abnormality seen of the right hand. Moisés Dennis MD Objective Remarks RUE: +sugar tong splint. nvi. Assessment & Plan Assessment and Plan 1) Right distal radius fx -npo -consents -surg this AM< Franky Gonzalez Jan 14, 2017 07:10
[2017-01-14 08:50] LABS: AUTOMATED NEUTROPHIL # 4.7 TH/MM3 (1.8-7.7); BASOPHIL % 0.5 % (0.0-2.0); EOSINOPHIL # 0.2 TH/MM3 (0-0.4); EOSINOPHIL % 2.5 % (0.0-4.0); HEMATOCRIT 37.5 % (35.0-46.0); HEMO FLAGS DIFF FINAL; LYMPHOCYTE # 1.5 TH/MM3 (1.0-4.8); MEAN CELL VOLUME 91.9 FL (80.0-100.0); MEAN CORPUSCULAR HEMOGLOBIN 30.2 PG (27.0-34.0); MEAN CORPUSCULAR HGB CONC 32.9 % (32.0-36.0); MONO % 9.1 % (0.0-8.0); NEUT % 66.9 % (16.0-70.0); PLATELET COUNT 150 TH/MM3 (150-450); RED BLOOD COUNT 4.08 MIL/MM3 (4.00-5.30); RED CELL DISTRIBUTION WIDTH 13.3 % (11.6-17.2)
[2017-01-14] MEDS: SODIUM CHLORIDE 0.9% FLUSH 10 ML FLUSH IV FLUSH SCH ×2 (09:00→21:15)
[2017-01-14] MEDS ORDERED: [UNRECOGNIZED DRUG - OTHER] PO SCH (09:00)
[2017-01-14] MEDS: cloNIDine HCL 0.1 MG TAB PO SCH ×2 (09:00→21:15)
[2017-01-14] MEDS ORDERED: BISOPROLOL PO SCH (09:00)
[2017-01-14 09:14] LABS: BICARBONATE 28.4 MEQ/L (21.0-32.0); POTASSIUM 3.2 MEQ/L (3.5-5.1)
[2017-01-14] MEDS ORDERED: GENTAMICIN SULFATE 80 MG/2 ML VIAL ONE (09:49)
[2017-01-14] MEDS ORDERED: VANCOMYCIN HCL 1000 MG VIAL ONE (09:59)
[2017-01-14] MEDS ORDERED: ceFAZolin INJ 1,000 MG VIAL ONE (10:26)
--- NOTE | 2017-01-14 10:32 | EKG ---
Date Performed: 01/13/2017 Time Performed: 22:09:30 PTAGE: 81 years EKG: ATRIAL FIBRILLATION NONSPECIFIC ST & T-WAVE ABNORMALITY ABNORMAL RHYTHM ECG Compared to PREVIOUS TRACING atrial fibrillation is new, nonspecific T wave changes are also noted P REVIOUS TRACIN08/25/2000 14.44 DOCTOR: Georgi Lee Interpretating Date/Time 01/14/2017 10:31:46
--- NOTE | 2017-01-14 11:13 | PD.OP ---
cc: Vincent Sinclair MD Operative Report Date of Surgery: Jan 14, 2017 Preoperative Diagnosis: Displaced right distal radius intra-articular fracture Postoperative Diagnosis: Procedure: Open reduction internal fixation right distal radius Anesthesia: Gen. Surgeon: Vincent Sinclair Hearing Aid Repairer(s): Nitin Salmeron PA-C The surgical procedure was assisted by my physician veterinary assistant technician. My P.A. presence was necessary throughout this case for the manipulation and positioning of the surgical extremity. My P.A. was assisting me throughout the duration of this procedure. The skill set of a physician veterinary assistant technician was medically necessary to complete this procedure. During the surgical case the certified surgical first assistant was working at the back table and the physician veterinary assistant technician was directly assisting me. Operation and Findings: Plan of activity: Nonweightbearing right arm, splint 2 weeks, then removable wrist brace Patient was seen and evaluated preoperatively and found to have a displaced distal radius fracture. Informed consent was obtained after detailed discussion of risk and benefits including bleeding, infection, injury to arteries, nerves, and blood vessels, weakness and numbness of hand, and tendon rupture. Informed consent was obtained. Patient received IV antibiotics prior to incision. Timeout procedure was performed. Operative extremity was prepped with alcohol followed by Hibiclens and draped usual sterile fashion. A standard volar approach to the distal radius was utilized. A 3 inch incision was made over the FCR tendon. Tendon sheath was opened. Pronator quadratus was elevated up. The fracture site was now visualized. The fracture did have intra-articular extension. Traction was applied. The articular surface was reduced. Fracture fragments were manipulated to achieve excellent reduction. K wires were used to hold provisional fixation. Fluoroscopy confirmed appropriate alignment of fracture. A ITS variable angle distal radius plate was selected. Plate was provisionally fixed to bone with K wires. 2.7 and 2.4 cortical screws were used to compress plate to bone. Fluoroscopy confirmed appropriate alignment of fracture with well-placed hardware. Multiple 2.4 locking screws were now placed distally. Screws were predrilled and measured for appropriate length. 2 additional screws were placed into the shaft. K wires were removed. Final fluoroscopy revealed excellent of fracture with well- placed hardware. The wound was thoroughly irrigated with sterile saline. Subcutaneous tissue was closed with 3-0 Vicryl and skin was closed with 3-0 nylon. Sterile dressings were applied with Xeroform, 4 x 4, soft roll, and a well padded volar splint. Patient was awakened and transferred to recovery room in stable condition Vincent Sinclair MD Jan 14, 2017 11:13
[2017-01-14] MEDS ORDERED: MORPHINE SULFATE 4 MG/ML INJ IV PUSH PRN (11:15)
[2017-01-14] MEDS ORDERED: DO NOT ADM ANY ANTICOAGULANT DRUGS PRN (11:30)
--- NOTE | 2017-01-14 11:32 | MB ---
cc: BRENDA ALBERT DATE OF CONSULTATION 01/14/2017 DATE OF ADMISSION 01/13/2017 REASON FOR CONSULTATION Displaced right distal radius fracture. CONSULTING PHYSICIAN Dr. Linares ALEKSANDR Martinez is an 81-year-old female who is relatively active. She still works and owns a pet store. She had a fall. She had walked outside her house to throw something into the garbage. When she was coming back into the house, she lost her balance and fell. She had immediate right wrist pain. She presented to the emergency room where x-rays revealed an angulated right distal radius fracture. She has been admitted for treatment of this injury. Her only complaint is her right wrist. She had no dizziness, syncope or loss of consciousness. Pain is worse with movement. PAST MEDICAL HISTORY ILLNESSES 1. Renal failure 2. Hypertension 3. CHF SURGERIES 1. Cholecystectomy 2. Bladder lift MEDICATIONS Include: 1. Amoxicillin 2. Clonidine 3. Levothyroxine 4. Ziac ALLERGIES CODEINE FAMILY HISTORY Positive for heart disease and myocardial infarction in her father. SOCIAL HISTORY The patient denies alcohol, tobacco or drug use. REVIEW OF SYSTEMS The patient denies headache, visual changes, neck pain, chest pain, shortness of breath, abdominal pain, nausea or recent weight loss, fevers or chills or numbness or tingling of extremities. She complains of right wrist pain, pain is worse with movement. PHYSICAL EXAMINATION The patient is a thin 81-year-old female in no acute distress. She is awake and alert. She is alert and oriented x3. She appears well-developed, well-nourished. VITAL SIGNS: Temperature 98.1, pulse 77, respirations 18, blood pressure 152/80, O2 sat 95% on room air. HEAD: The patient is normocephalic. EYES: Pupils are equal. NECK: Soft, nontender. Trachea is midline. ABDOMEN: Soft, nontender, nondistended. EXTREMITIES: Examination of the right arm reveals no pain with shoulder or elbow motion. She is diffusely tender around the wrist. There is deformity of the wrist present. Skin is intact. She has good cap refill in her fingers. Sensation is intact in the radial, ulnar and median nerve distributions. Examination of the left arm reveals no pain with shoulder or wrist motion. Skin is intact. Radial pulses palpable. Sensation is intact. Examination of bilateral lower extremities reveals no pain with hip, knee or ankle motion. Skin is intact both feet. Dorsalis pedis pulses palpable. Sensation is intact to both feet. X-RAYS X-rays of the right wrist were reviewed. X-rays reveal an intra-articular displaced right distal radius fracture. There is angular deformity of the distal radius. IMPRESSION Angulated and displaced right distal radius fracture. PLAN Treatment options were discussed with the patient. I discussed with her treatment options including surgical and nonsurgical options. I explained to her that many elderly patients with this injury are treated nonoperatively because of their lower functional use requirements. She is right-hand dominant. She still works full-time and is quite active. She would like to have the best functional outcome if possible. The risks of surgery including bleeding, infection, injury to arteries, nerves and blood vessels, nonunion, malunion, tendon rupture as well as medical complications including blood clot, stroke, heart attack and were discussed. She would like to proceed with surgery. All questions were answered. A mid-level provider in my office, nurse practitioner or PA, may see this patient on a follow-up basis and continue to implement the objective of this plan including: Starting or adjusting medications, injections of muscle, tendon, bursa or joints, cast application, orthotic or brace application, physical therapy, further radiographic studies including x-ray, MRI, CT, ultrasounds or bone scan, vascular studies, neurologic studies, or other specialist consultations, and proceeding with surgical management as appropriate. MD KHANG Nino/COLE /11:16 AM /11:23 AM
[2017-01-14] MEDS ORDERED: *morphine SULFATE 8 MG/ML PERIprocedure ONLY ONE (11:42)
--- NOTE | 2017-01-14 11:54 | RADRPT ---
EXAM DATE/TIME: 01/14/2017 11:04 [facility] COMPARISON: FLUOROSCOPY PORTABLE UP TO 1HR, January 14, 2017, 0:00. INDICATIONS : Open reduction, internal fixation of right wrist. MEDICAL HISTORY : None. SURGICAL HISTORY : None. ENCOUNTER: Initial ACUITY: 1 day PAIN SCORE: Non-responsive. LOCATION: Right wrist. FINDINGS: There has been interval plating of the patient's distal radial fracture. Plate is well-positioned the alignment is excellent. Note is made of an old, ununited ulnar styloid fracture. CONCLUSION: 1. Excellent alignment of the patient's distal radial fracture post plating. Pietro Licona MD on January 14, 2017 at 11:52 Board Certified Radiologist. This report was verified electronically.
[2017-01-14] MEDS ORDERED: *MEPERIDINE 25 MG INJ VIAL PERIprocedural Use ONLY ONE (11:55)
[2017-01-14] MEDS ORDERED: LACTATED RINGER'S 1000 ML INJ 2,000 ML IV ONE (12:00)
[2017-01-14] MEDS ORDERED: SODIUM CHLORIDE 0.9% 20 ML VIAL IV ONE (12:00)
[2017-01-14] MEDS ORDERED: LABETALOL HCL 100 MG/20 ML VIAL IV ONE (12:00)
[2017-01-14] MEDS ORDERED: DEXAMETHASONE SOD PHOS 4 MG/ML VIAL IV ONE (12:00)
[2017-01-14] MEDS ORDERED: LIDOCAINE HCL 1% PF 5 ML AMPULE OTHER ONE (12:00)
[2017-01-14] MEDS ORDERED: POTASSIUM CHLORIDE 20 MEQ CONTROLLED RELEASE TAB PO ONE (12:00)
[2017-01-14] MEDS ORDERED: PROPOFOL 200 MG/20 ML AMP IV ONE (12:00)
[2017-01-14] MEDS ORDERED: ONDANSETRON HCL 4 MG/2 ML VIAL IV PUSH ONE (12:00)
[2017-01-14] MEDS ORDERED: KETOROLAC TROMETHAMINE 30 MG/ML (IVP) VIAL IV PUSH ONE (12:00)
[2017-01-14] MEDS ORDERED: *ENALAPRILAT 1.25 MG/ML VIAL PERIprocedural Use ONLY ONE (12:16)
[2017-01-14] MEDS: cloNIDine HCL 0.1 MG TAB PO PRN (13:32)
--- NOTE | 2017-01-14 13:49 | PD.ORT.PN ---
Subjective Subjective Remarks POD 0 s/p ORIF right wrist doing well. stable post op Objective Vitals Vital Signs Date Time Temp Pulse Resp B/P (MAP) Pulse Ox O2 Delivery O2 Flow Rate FiO2 01/14/17 12:22 98.0 76 16 180/96 (124) 99 Nasal Cannula 3 01/14/17 12:00 88 17 186/91 (122) 99 Nasal Cannula 3 01/14/17 11:45 82 15 171/94 (119) 95 Nasal Cannula 3 01/14/17 11:34 97.8 80 15 224/96 (138) 100 Nasal Cannula 3 01/14/17 08:10 Room Air 01/14/17 07:41 98.1 77 18 152/80 (104) 95 01/14/17 04:00 97.9 76 17 147/78 (101) 97 01/14/17 03:10 Room Air 01/13/17 22:53 97.6 76 17 189/95 (126) 99 01/13/17 22:35 01/13/17 22:15 74 18 163/94 (117) 99 Room Air 01/13/17 22:01 73 18 210/100 (136) 99 Room Air 01/13/17 20:14 67 18 197/89 (125) 99 Room Air 01/13/17 19:46 83 18 207/93 (131) 98 Room Air 01/13/17 18:41 99 Room Air 01/13/17 16:34 99.1 76 18 210/103 (138) 96 Room Air I/O 01/13/17 01/13/17 01/13/17 01/14/17 01/14/17 01/14/17 07:00 15:00 23:00 07:00 15:00 23:00 Intake Total 0 ml 700 ml Output Total 30 ml Balance 0 ml 670 ml Intake Oral 0 ml Other 700 ml Output Estimated Blood Loss 30 ml # Voids 2 Result Diagram: 01/14/17 0803 01/14/17 0803 Other Results Laboratory Tests Test 01/13/17 21:26 Prothromb Time International Ratio 1.0 RATIO Prothrombin Time 10.5 SEC (9.8-11.6) Imaging Last 24 hours Impressions Radius/Ulna X-Ray 01/13/17 1900 Signed Impressions: Service Date/Time: December 19:14 - CONCLUSION: Comminuted and mildly impacted/dorsally displaced of the distal radius without significant change. Also a mildly displaced ulnar styloid fracture. The rest of the right radius and ulna are intact. Moisés Dennis MD Hand X-Ray 01/13/17 1903 Signed Impressions: Service Date/Time: December 19:15 - CONCLUSION: No fracture or other acute abnormality seen of the right hand. Moisés Dennis MD Objective Remarks RUE: +short arm splint. intact. NVI Assessment & Plan Assessment and Plan 1) Right distal radius fx s/p ORIF - POD 0 -NWB -maintain splint at all times -RX on chart -ortho cleared for DC home -f/u with [facility] or [facility] in 2 weeks Franky Gonzalez Jan 14, 2017 13:49
--- NOTE | 2017-01-14 14:52 | HHI.PR ---
Subjective Remarks Patient seen after the OR She stated she feels very weak and awful. Denied any CP, SOB, palpitations, lightheadedness/dizziness. Patient stated she has kids and grandkids to help her at home. Objective Vitals Vital Signs Date Time Temp Pulse Resp B/P (MAP) Pulse Ox O2 Delivery O2 Flow Rate FiO2 01/14/17 12:22 98.0 76 16 180/96 (124) 99 Nasal Cannula 3 01/14/17 12:00 88 17 186/91 (122) 99 Nasal Cannula 3 01/14/17 11:45 82 15 171/94 (119) 95 Nasal Cannula 3 01/14/17 11:34 97.8 80 15 224/96 (138) 100 Nasal Cannula 3 01/14/17 08:10 Room Air 01/14/17 07:41 98.1 77 18 152/80 (104) 95 01/14/17 04:00 97.9 76 17 147/78 (101) 97 01/14/17 03:10 Room Air 01/13/17 22:53 97.6 76 17 189/95 (126) 99 01/13/17 22:35 01/13/17 22:15 74 18 163/94 (117) 99 Room Air 01/13/17 22:01 73 18 210/100 (136) 99 Room Air 01/13/17 20:14 67 18 197/89 (125) 99 Room Air 01/13/17 19:46 83 18 207/93 (131) 98 Room Air 01/13/17 18:41 99 Room Air 01/13/17 16:34 99.1 76 18 210/103 (138) 96 Room Air I/O 01/13/17 01/13/17 01/13/17 01/14/17 01/14/17 01/14/17 07:00 15:00 23:00 07:00 15:00 23:00 Intake Total 0 ml 700 ml Output Total 30 ml Balance 0 ml 670 ml Intake Oral 0 ml Other 700 ml Output Estimated Blood Loss 30 ml # Voids 2 Result Diagram: 01/14/1780201/14/17 0803 Objective Remarks GENERAL: in NAD CARDIOVASCULAR: Regular rate and rhythm without murmurs, gallops, or rubs. RESPIRATORY: Breath sounds equal bilaterally. No accessory muscle use. GASTROINTESTINAL: Abdomen soft, non-tender, nondistended. MUSCULOSKELETAL: right hand/arm in bandage with sling in place. sensation intact. Medications and IVs Current Medications Morphine Sulfate (Morphine Inj) 3 mg ONCE ONCE IV PUSH Last administered on 20:14; Start 01/13/17 at 20:00; Stop 01/14/17 at 14:48; Status DC Ondansetron HCl (Zofran Inj) 4 mg ONCE ONCE IV PUSH Last administered on 20:14; Start 01/13/17 at 20:00; Stop 01/13/17 at 20:03; Status DC Sodium Chloride (NS Flush) 2 ml UNSCH PRN IV FLUSH FLUSH AFTER USING IV ACCESS Last administered on 01/14/17 13:32; Start 01/13/17 at 22:00 Sodium Chloride (NS Flush) 2 ml BID IV FLUSH ; Start 01/14/17 at 09:00 Naloxone HCl (Narcan Inj) 0.4 mg UNSCH PRN IV PUSH SEE LABEL COMMENTS; Start at 22:00 Morphine Sulfate (Morphine Inj) 2 mg Q3H PRN IV PUSH pain >5 Last administered on 01/14/17 13:32; Start 01/13/17 at 22:00; Stop 01/14/17 at 14:48; Status DC Clonidine (Catapres) 0.1 mg Q6H PRN PO bp>160/90 Last administered on 13:32; Start 01/13/17 at 22:00 Clonidine (Catapres) 0.1 mg BID PO ; Start 01/14/17 at 09:00 Levothyroxine Sodium (Synthroid) 100 mcg DAILY@0600 PO Last administered on 06:14; Start 01/14/17 at 06:00 Patient Own Medication PT OWN MED: Bisopro... DAILY PO ; Start 01/14/17 at 09:00 ; Status Future hold Gentamicin Sulfate (Gentamicin Inj) 240 mg STK-MED ONCE .ROUTE Last administered on 01/14/17 10:36; Start 01/14/17 at 09:49; Stop 01/14/17 at 09:50 ; Status DC Vancomycin HCl (Vancomycin Inj) 1,000 mg STK-MED ONCE .ROUTE Last administered on 01/14/17 10:29; Start 01/14/17 at 09:59; Stop 01/14/17 at 10:00; Status DC Cefazolin Sodium (Ancef Inj) 1,000 mg STK-MED ONCE .ROUTE Last administered on 01/14/17 10:36; Start 01/14/17 at 10:26; Stop 01/14/17 at 10:27; Status DC Acetaminophen/ Hydrocodone Bitart ([place] 7.5-325 Mg) 1 tab Q3H PRN PO PAIN 3< 10; Start 01/14/17 at 11:15 Morphine Sulfate (Morphine Inj) 2 mg Q3H PRN IV PUSH break thru pain; Start at 11:15; Stop 01/14/17 at 14:48; Status DC Potassium Chloride (KCl) 40 meq ONCE ONCE PO Last administered on 01/14/17 13 :32; Start 01/14/17 at 12:00; Stop 01/14/17 at 12:01; Status DC Morphine Sulfate (*morphine INJ PERIprocedure ONLY) 8 mg STK-MED ONCE .ROUTE Last administered on 01/14/17 11:42; Start 01/14/17 at 11:42; Stop 01/14/17 at 11:43; Status DC Meperidine HCl (*DEMEROL INJ PERIprocedural ONLY) 25 mg STK-MED ONCE .ROUTE Last administered on 01/14/17 11:55; Start 01/14/17 at 11:55; Stop 01/14/17 at 11:56; Status DC Miscellaneous Information ALL NURSING DEPARTME... UNSCH PRN .XX SEE LABEL COMMENTS; Start 01/14/17 at 11:30; Stop 01/15/17 at 11:29 Enalaprilat (*VASOTEC INJ PERIprocedural Use ONLY) 1.25 mg STK-MED ONCE .ROUTE Last administered on 01/14/17 12:16; Start 01/14/17 at 12:16; Stop 01/14/17 at 12:17; Status DC Acetaminophen/ Hydrocodone Bitart ([place] 5-325 Mg) 1 tab Q4H PRN PO pain 1-7; Start 01/14/17 at 15:00; Status UNV Acetaminophen/ Hydrocodone Bitart ([place] 5-325 Mg) 2 tab Q4H PRN PO pain 8-10 ; Start 01/14/17 at 15:00; Status UNV A/P Problem List: (1) Wrist fracture, right ICD Code: S62.101A - Fracture of unspecified carpal bone, right wrist, initial encounter for closed fracture Status: Acute (2) HTN (hypertension) ICD Code: I10 - Essential (primary) hypertension Status: Chronic Assessment and Plan 81 y/o female with a history of CKD stage IV, HTN, 2 leaky valves, CHF, COPD and hypothyroid presented to the ED with complaints of increasing pain and swelling in right wrist. Wrist fracture, right -Wrist x ray showed a comminuted and mildly impacted/dorsally displaced of the distal radius. also mildly displace ulnar styloid fracture. -s/p ORIF today on 01/14 -per Ortho [facility], maintain splint at all times, ortho cleared for DC home, f/u with [facility] or [facility] in 2 weeks Hypertensive urgency -Asymptomatic. Most likely secondary to severe pain due to wrist fracture and patient has not taken her home medication. -Resume home medication. Continue clonidine when necessary. -Adjust as necessary. Hypothyroid, chronic -Continue home medication. CKD, chronic, creatine 1.69, baseline 2.2 -Avoid nephrotoxins -Continue to monitor creatinine. DVT prophylaxis: SCDs Discharge Planning If blood pressure is better controlled tomorrow can be discharged home tomorrow. Patient stated that she has multiple family members to help her at home. Discussed with patient's case management. Problem Qualifiers (1) Wrist fracture, right: Qualified Codes: S62.101A - Fracture of unspecified carpal bone, right wrist, initial encounter for closed fracture Alpa Norton MD Jan 14, 2017 14:52
[2017-01-14] MEDS ORDERED: ACETAMINOPHEN/HYDROcodone 325 MG/5 MG TAB PO PRN ×2 (15:00)
[2017-01-14] MEDS ORDERED: ACETAMINOPHEN 500 MG CPLT PO PRN (16:00)
[2017-01-14] MEDS: ACETAMINOPHEN/HYDROcodone 325 MG/7.5 MG TAB PO PRN ×2 (17:45→21:15)
[2017-01-15] VITALS: BP 100/59; PULSE 75; RESP 16; TEMP 97.6; O2SAT 100
[2017-01-15 04:05] VITALS: BP 113/66; PULSE 71; RESP 17; TEMP 97.9; O2SAT 100
[2017-01-15] MEDS: LEVOTHYROXINE SODIUM 100 MCG TAB PO SCH (06:08)
--- NOTE | 2017-01-15 06:29 | PD.ORT.PN ---
Subjective Subjective Remarks doing better with wrist no complaints of SOB, no chest pain Objective Vitals Vital Signs Date Time Temp Pulse Resp B/P (MAP) Pulse Ox O2 Delivery O2 Flow Rate FiO2 01/15/17 04:05 97.9 71 17 113/66 (82) 100 01/15/17 00:35 Room Air 01/15/17 00:00 97.6 75 16 100/59 (73) 100 01/14/17 22:13 16 01/14/17 21:51 98 Nasal Cannula 3.00 01/14/17 20:00 96 01/14/17 19:15 98.2 73 18 115/54 (74) 98 01/14/17 17:09 98 Nasal Cannula 3.00 01/14/17 16:00 97.0 80 18 102/57 (72) 97 01/14/17 12:22 98.0 76 16 180/96 (124) 99 Nasal Cannula 3 01/14/17 12:00 88 17 186/91 (122) 99 Nasal Cannula 3 01/14/17 11:45 82 15 171/94 (119) 95 Nasal Cannula 3 01/14/17 11:34 97.8 80 15 224/96 (138) 100 Nasal Cannula 3 01/14/17 08:10 Room Air 01/14/17 08:00 89 01/14/17 07:41 98.1 77 18 152/80 (104) 95 I/O 01/14/17 01/14/17 01/14/17 01/15/17 01/15/17 01/15/17 07:00 15:00 23:00 07:00 15:00 23:00 Intake Total 0 ml 700 ml 600 ml 480 ml Output Total 30 ml Balance 0 ml 670 ml 600 ml 480 ml Intake Oral 0 ml 600 ml 480 ml Other 700 ml Output Estimated Blood Loss 30 ml # Voids 2 2 1 Result Diagram: 01/14/17 0803 01/14/17 0803 Imaging Last 24 hours Impressions Radius/Ulna X-Ray 01/13/17 190 Signed Impressions: Service Date/Time: December 19:14 - CONCLUSION: Comminuted and mildly impacted/dorsally displaced of the distal radius without significant change. Also a mildly displaced ulnar styloid fracture. The rest of the right radius and ulna are intact. Moisés Dennis MD Hand X-Ray 01/13/17 190 Signed Impressions: Service Date/Time: December 19:15 - CONCLUSION: No fracture or other acute abnormality seen of the right hand. Moisés Dennis MD Objective Remarks seen by Dr. Joce JUNE: +short arm splint with sling +NVI Assessment & Plan Assessment and Plan 1) Right distal radius fx s/p ORIF - POD #1 -NWB -maintain splint at all times -RX on chart -ortho cleared for DC home -f/u with [facility] or [facility] in 2 weeks Lisa Elizondo Jan 15, 2017 06:29
[2017-01-15] MEDS: cloNIDine HCL 0.1 MG TAB PO SCH (08:00)
[2017-01-15] MEDS: ACETAMINOPHEN/HYDROcodone 325 MG/7.5 MG TAB PO PRN ×2 (08:00→14:01)
[2017-01-15] MEDS: SODIUM CHLORIDE 0.9% FLUSH 10 ML FLUSH IV FLUSH SCH (09:00)
[2017-01-15 10:08] VITALS: BP 136/69; PULSE 99; RESP 21; TEMP 96; O2SAT 98
[2017-01-15] MEDS ORDERED: APIX2.5T PO (11:04)
--- NOTE | 2017-01-15 11:09 | HHI.DCPOC ---
Discharge Care Plan Diagnosis: (1) Atrial fibrillation (2) Chronic kidney disease (3) Wrist fracture, right (4) HTN (hypertension) Goals to Promote Your Health * To prevent worsening of your condition and complications * To maintain your health at the optimal level Directions to Meet Your Goals Take your medications as prescribed Follow your dietary instruction Follow activity as directed Keep your appointments as scheduled Take your immunizations and boosters as scheduled If your symptoms worsen call your PCP, if no PCP go to Urgent Care Center or Emergency Room Smoking is Dangerous to Your Health. Avoid second hand smoke Call the 24-hour hour crisis hotline for domestic abuse at Alpa Norton MD Jan 15, 2017 11:09
[2017-01-15 13:05] LABS: FREE T4 1.53 NG/DL (0.76-1.46)
[2017-01-15 13:37] VITALS: BP 111/48; PULSE 74; RESP 20; TEMP 97.5; O2SAT 97
[2017-01-15] MEDS ORDERED: LEVO88TA2 PO (13:38)
[2017-01-15] MEDS ORDERED: CLON0.1T PO (13:38)
--- NOTE | 2017-01-15 13:42 | HHI.DS ---
Discharge Summary Admission Date Jan 13, 2017 at 21:58 Discharge Date: Jan 15, 2017 Admitting Diagnosis right wrist fracture (1) Wrist fracture, right ICD Code: S62.101A - Fracture of unspecified carpal bone, right wrist, initial encounter for closed fracture Diagnosis: Principal Status: Acute (2) HTN (hypertension) ICD Code: I10 - Essential (primary) hypertension Diagnosis: Secondary Status: Chronic (3) Chronic kidney disease ICD Code: N18.9 - Chronic kidney disease, unspecified Diagnosis: Secondary (4) Atrial fibrillation ICD Code: I48.91 - Unspecified atrial fibrillation Diagnosis: Secondary Procedures see hospital course Brief History - From Admission Written by BETHANY Streeter acting as scribe for [Lindsey] on 01/14/17 at 04: 37. 81 y/o female with a history of CKD stage IV, HTN, 2 leaky valves, CHF, COPD and hypothyroid presented to the ED with complaints of increasing pain and swelling in right wrist. She states on Tuesday she walked outside to throw out a lamp in the garbage and she stepped backwards and she fell and landed on her right arm. Denies any LOC or hitting her head. She went to [facility] and she was splinted and given the number for an orthopedic and told to follow up out patient. She called the orthopedic and was unable to get an appointment until . She states the pain and swelling began to increase so she came back to the hospital. The splint was removed in the ED and she had instant pain relief. Splint was reapplied in ED. She denies any chest pain, sob, fever or chills. Patient states 1 week ago she was treated for a kidney infection and was treated with Augmentin by her PCP. PCP: Dr. Posey CBC/BMP: 01/14/17 0803 01/14/17 0803 Significant Findings Laboratory Tests Test 01/13/17 21:26 01/14/17 08:03 01/15/17 12:10 Platelet Count 148 TH/MM3 (150-450) Mean Platelet Volume 12.0 FL (7.0-11.0) 11.7 FL (7.0-11.0) Monocytes (%) (Auto) 10.3 % (0.0-8.0) 9.1 % (0.0-8.0) Blood Urea Nitrogen 32 MG/DL (7-18) 26 MG/DL (7-18) Creatinine 1.69 MG/DL (0.50-1.00) 1.54 MG/DL (0.50-1.00) Potassium Level 3.3 MEQ/L (3.5-5.1) 3.2 MEQ/L (3.5-5.1) Estimat Glomerular Filtration Rate 29 ML/MIN (>89) 32 ML/MIN (>89) Free Thyroxine 1.53 NG/DL (0.76-1.46) Imaging Last Impressions Wrist X-Ray 01/14/17 0000 Signed Impressions: Service Date/Time: Saturday, January 14, 2017 11:04 - CONCLUSION: 1. Excellent alignment of the patient's distal radial fracture post plating. Pietro Licona MD Radius/Ulna X-Ray 01/13/171902 Signed Impressions: Service Date/Time: December 19:14 - CONCLUSION: Comminuted and mildly impacted/dorsally displaced of the distal radius without significant change. Also a mildly displaced ulnar styloid fracture. The rest of the right radius and ulna are intact. Moisés Dennis MD Hand X-Ray 01/13/171902 Signed Impressions: Service Date/Time: December 19:15 - CONCLUSION: No fracture or other acute abnormality seen of the right hand. Moisés Dennis MD Chest X-Ray 01/13/17 0000 Signed Impressions: Service Date/Time: December 21:25 - CONCLUSION: No acute cardiopulmonary disease demonstrated. Mild compensated cardiomegaly. Moisés Dennis MD PE at Discharge GENERAL: in NAD CARDIOVASCULAR: irregular rate and irregular rhythm without murmurs, gallops, or rubs. RESPIRATORY: Breath sounds equal bilaterally. No accessory muscle use. GASTROINTESTINAL: Abdomen soft, non-tender, nondistended. MUSCULOSKELETAL: right hand/arm in bandage with sling in place. sensation intact. Pt update on day of discharge Follow-up for wrist fracture Patient's son is at the bedside. She is very anxious to go home. Blood pressure has been lower than usual secondary to pain medication. She denies any chest pain, SOB, palpitation, or lightheadedness/dizziness. Patient was not aware of any history of atrial fibrillation. She has no history of GI bleed. Patient stated that she has never fallen and that this was a mistake and her very first time. She stated she is very independent and does not fall. Patient also stated that she just established with a new PCP. Discussed with patient's nurse and case management. Hospital Course 81 y/o female with a history of CKD stage IV, HTN, 2 leaky valves, CHF, COPD and hypothyroid presented to the ED with complaints of increasing pain and swelling in right wrist. Wrist fracture, right -Wrist x ray showed a comminuted and mildly impacted/dorsally displaced of the distal radius. also mildly displace ulnar styloid fracture. -s/p ORIF on 01/14 -per Ortho [facility], maintain splint at all times, ortho cleared for DC home, f/u with [facility] or [facility] in 2 weeks Hypertensive urgency -Asymptomatic. Most likely secondary to severe pain due to wrist fracture and patient has not taken her home medication. -Improved during hospital course. In fact she had one episode when she went hypotensive due to taking her antihypertensive and pain medication at same time. This resolved during hospital course. -Patient stated that she does not take clonidine twice a day she only takes it once a day to sleep. Patient told that while on pain medication to check her blood pressure and if systolic blood pressure is less than <130 do not take clonidine. Atrial fibrillation -EKG reviewed and patient was atrial fibrillation on the day of admission. She continues to be in atrial fibrillation on monitor. She had no symptoms. Asymptomatic. -Check TSH and T4, T4 was mildly elevated. Very unlikely that was caused of her atrial fibrillation since elevation was very mild. -CHADSVASC score of 4 recommending anticoagulation. Extension education given on the risk, benefits and side effects of anticoagulation. Due to kidney function patient given a choice between Eliquis vs coumadin. Patient aware increase risk of bleeding from medication. She wanted Eliquis. Eliquis 2.5 mg PO BID prescribed based on renal function and age. Hypothyroid, chronic -TSH and T4 checked. T4 mildly elevated. Would decrease dosage of levothyroxine to 88 mcg by mouth daily. Recheck TSH in 6 months by primary care provider. CKD, chronic, creatine 1.69, baseline 2.2 -improved during hospitalization. -Avoid nephrotoxins -Continue to monitor creatinine. Pt Condition on Discharge: Good Discharge Disposition: Discharge Home Discharge Time: > 30 minutes Discharge Instructions DIET: Follow Instructions for: Heart Healthy Diet Activities you can perform: See Additionl Instruction Other Activity Instructions: Nonweightbearing maintain splint at all times Follow up Referrals: Orthopedics - 2 Weeks [facility] with Vincent Scales MD PCP Follow-up - 1 Week New Medications: Apixaban (Eliquis) 2.5 Mg Tab 2.5 MG PO BID for Blood Clot Prevention, #60 TAB 0 Refills Clonidine (Clonidine) 0.1 Mg Tab 0.1 MG PO HS for Blood Pressure Management, #30 TAB 0 Refills please check blood pressure before taking medication. If your SBP is <130 do not take clonidine. Hydrocodone-Acetaminophen (Hydrocodone-Acetaminophen) 7.5-325 mg Tab 1 TAB PO Q4H PRN for PAIN, #60 TAB 0 Refills Levothyroxine (Levothyroxine) 88 Mcg Tab 88 MCG PO DAILY for Thyroid, #30 TAB 0 Refills please have TSH recheck in 6 weeks by your provider. Continued Medications: Amoxicillin (Amoxicillin) 250 Mg Cap 250 MG PO TID for Infection, CAP 0 Refills Bisoprolol-Hydrochlorothiazide (Ziac) 10-6.25 Mg Tab 1 TAB PO DAILY for Blood Pressure Management, #30 TAB 0 Refills Hydrocodone-Acetaminophen (Ceres) 5-325 mg Tab 1 TAB PO Q6H PRN for PAIN, #30 TAB 0 Refills Ondansetron Odt (Zofran Odt) 4 Mg Tab 4 MG SL Q6HR PRN for Nausea/Vomiting, #12 TAB 0 Refills Promethazine (Phenergan) 25 Mg Tablet 25 MG PO Q6H PRN for NAUSEA OR VOMITING, TAB 0 Refills Discontinued Medications: Clonidine (Clonidine) 0.1 Mg Tab 0.1 MG PO BID for Blood Pressure Management, #60 TAB 0 Refills Levothyroxine (Levothyroxine) 100 Mcg Tab 100 MCG PO DAILY for Thyroid, #30 TAB 0 Refills Alpa Norton MD Jan 15, 2017 13:42
[2017-01-15] MEDS ORDERED: POTASSIUM CHLORIDE 20 MEQ CONTROLLED RELEASE TAB PO ONE (13:45)
[2017-01-15 16:38] VITALS: BP 121/64; PULSE 72; RESP 21; TEMP 97.4; O2SAT 96
[2017-01-15 17:26] LABS: AUTOMATED NEUTROPHIL # 5.9 TH/MM3 (1.8-7.7); BASOPHIL % 0.2 % (0.0-2.0); EOSINOPHIL # 0.1 TH/MM3 (0-0.4); HEMO FLAGS DIFF FINAL; LYMPH % 17.5 % (9.0-44.0); LYMPHOCYTE # 1.4 TH/MM3 (1.0-4.8); MEAN CELL VOLUME 91.9 FL (80.0-100.0); MEAN CORPUSCULAR HEMOGLOBIN 30.3 PG (27.0-34.0); MEAN CORPUSCULAR HGB CONC 32.9 % (32.0-36.0); MONO % 9.1 % (0.0-8.0); NEUT % 72.2 % (16.0-70.0); PLATELET COUNT 138 TH/MM3 (150-450); RED BLOOD COUNT 3.48 MIL/MM3 (4.00-5.30); RED CELL DISTRIBUTION WIDTH 13.8 % (11.6-17.2); WHITE BLOOD COUNT 8.1 TH/MM3 (4.0-11.0)
[2017-01-15 17:45] LABS: BICARBONATE 29.7 MEQ/L (21.0-32.0); POTASSIUM 4.6 MEQ/L (3.5-5.1)
[2017-01-15] MEDS ORDERED: APIXABAN 2.5 MG TABLET PO SCH (21:00)
== END 2017-01-15 18:34 | disposition home or self-care (01) | DRG 511 ==
LOC: NEPC 16:32 → NEDA 21:58 → N06B 22:39
PROVIDERS: ADMIT Hospitalist; ATTEND Hospitalist
PROC: 0PSH04Z Reposition Right Radius with Internal Fixation Device, Open Approach (ICD-10-PCS; principal; 2017-01-14 10:02)
DX: S52.571A Other intraarticular fracture of lower end of right radius, initial encounter for closed fracture (principal); N18.4 Chronic kidney disease, stage 4 (severe); I13.0 Hypertensive heart and chronic kidney disease with heart failure and stage 1 through stage 4 chronic kidney disease, or unspecified chronic kidney disease; I50.9 Heart failure, unspecified; I48.91 Unspecified atrial fibrillation; J44.9 Chronic obstructive pulmonary disease, unspecified; S52.611A Displaced fracture of right ulna styloid process, initial encounter for closed fracture; W01.0XXA Fall on same level from slipping, tripping and stumbling without subsequent striking against object, initial encounter; E03.9 Hypothyroidism, unspecified; I16.0 Hypertensive urgency; Z79.899 Other long term (current) drug therapy
CPT/HCPCS: 25605; 71010; 73090; 73100; 73130; 76000; 80048; 84439; 84443; 85025; 85610; 85730; 86850; 86900; 86901; 93005; 96361; 96374; 96375; C1713; J0690; J1100; J1580; J1885; J2175; J2270; J2405; J3010; J3370; J7030; J7120